=== PATIENT | male | born 1935 | race Caucasian/White ===

== ENCOUNTER 2023-01-06 11:32 | Emergency (ER) | payer BC ==
[~2023-01-06] VITALS: Ht 167.6 cm; Wt 61.2 kg
--- NOTE | 2023-01-06 11:45 | NUR ---
[facility] syncopal episode witnessed by son , denies trauma . pt aox4 , stable vital signs . awaiting for md flanagan
--- NOTE | 2023-01-06 11:49 | NUR ---
SALES VICE PRESIDENT AT BEDSIDE
--- NOTE | 2023-01-06 11:50 | NUR ---
PA AT BEDSIDE
--- NOTE | 2023-01-06 11:52 | NUR ---
20G RAC BLOOD DRAWN AND SENT TO LAB
--- NOTE | 2023-01-06 11:55 | NUR ---
GEOLOGIST AT BEDSIDE
--- NOTE | 2023-01-06 12:20 | NUR ---
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
[2023-01-06 13:07] LABS: BASOPHILS % (AUTO) 0.5 % (0.0-2.0); EOSINOPHILS % (AUTO) 1.2 % (0.0-6.0); HEMATOCRIT 43 % (39-51); HEMOGLOBIN 13.9 g/dL (13.5-17.5); LYMPHOCYTES # (AUTO) 1.4 K/uL (0.8-4.8); LYMPHOCYTES % (AUTO) 28.9 % (20.0-44.0); MEAN CORPUSCULAR HGB CONC 32 g/dl (31.0-36.0); MEAN CORPUSCULAR VOLUME 92 fL (80-96); MONOCYTES # (AUTO) 0.2 K/uL (0.1-1.30); MONOCYTES % (AUTO) 3.5 % (2.0-12.0); NEUTROPHILS # (AUTO) 3.2 K/uL (1.8-8.9); NEUTROPHILS % (AUTO) 65.9 % (43.0-81.0); PLATELET COUNT (AUTO) 260 K/uL (150-450); RED BLOOD CELL COUNT(AUTO) 4.65 MIL/uL (4.5-6.0); WHITE BLOOD COUNT (AUTO) 4.9 K/uL (4.3-11.0)
[2023-01-06 13:09] LABS: ALANINE AMINOTRANSFERASE 21 U/L (12-78); ALBUMIN 3.7 g/dL (3.4-5.0); ALKALINE PHOSPHATASE 104 U/L (46-116); ASPARTATE AMINOTRANSFERASE 22 U/L (15-37); BILIRUBIN,DIRECT 0.1 mg/dL (0.0-0.2); BILIRUBIN,TOTAL 0.4 mg/dL (0.2-1.0); CALCIUM, SERUM 9.8 mg/dL (8.5-10.1); CARBON DIOXIDE 26 mmol/L (21-32); CHLORIDE 101 mmol/L (98-107); CREATININE 0.7 mg/dL (0.6-1.3); GLUCOSE 109 mg/dL (74-106); POTASSIUM 4.1 mmol/L (3.5-5.1); SODIUM SERUM 137 mmol/L (136-145); TOTAL PROTEIN, SERUM 8.3 g/dL (6.4-8.2); UREA NITROGEN, BLOOD 15 mg/dL (7-18)
[2023-01-06] MEDS ORDERED: IV NS 0.9% 1,000 ML IV ONE (14:00)
[2023-01-06] MEDS ORDERED: OLAP150T PO (14:02)
[2023-01-06] MEDS ORDERED: MIDO2.5T PO (14:02)
[2023-01-06] MEDS ORDERED: CARB1TAB21 PO (14:02)
[2023-01-06] MEDS ORDERED: LATA2.5D15 EACHEYE (14:02)
[2023-01-06] MEDS ORDERED: DARO300T PO (14:02)
[2023-01-06] MEDS ORDERED: BRIM5DRO3 EACHEYE (14:02)
[2023-01-06] MEDS ORDERED: DORZ10DR18 EACHEYE (14:02)
--- NOTE | 2023-01-06 14:19 | NUR ---
DR NEWMAN AT BEDSIDE
--- NOTE | 2023-01-06 14:38 | NUR ---
IV removed. Catheter intact and site benign. Pressure and 4x4 applied to site. No bleeding noted.
--- NOTE | 2023-01-06 14:38 | NUR ---
Patient discharged to home in stable condition. Written and verbal after care instructions given. Patient verbalizes understanding of instruction.
[2023-01-06 14:39] VITALS: BP 132/68
== END 2023-01-06 14:49 | disposition home or self-care (01) ==
LOC: ER 11:34
DX: R55 Syncope and collapse (principal); I95.1 Orthostatic hypotension; G20 Parkinson's disease; C61 Malignant neoplasm of prostate; Z79.899 Other long term (current) drug therapy; Z20.822 Contact with and (suspected) exposure to COVID-19
CPT/HCPCS: 99285; 96360; 71045; 87426; 93005; 85025; 80048; 80076; 36415; 84484 ×2; 83880; 82962; J7030; C9803